=== PATIENT | male | born 1955 | race Caucasian/White ===

== ENCOUNTER 2019-03-03 06:51 | Day surgery (SDC) | payer OTHER ==
[~2019-03-03] VITALS: Ht 185.4 cm; Wt 86.2 kg
[~2019-03-03 06:51] MED LIST: ALBU90OI61 INH; HYDPAM50 PO; MOME220I INH; Omeprazole20 M1 PO; QUET100 PO; SILD25T PO; Trazodone HCl300 MG PO
--- NOTE | 2019-03-03 07:46 | NUR ---
PT ADMITTED TO [facility]. AGREES WITH PLANNED SURGERY. LUNG SOUNDS CLEAR.
--- NOTE | 2019-03-03 13:53 | NUR ---
LATE ENTRY: 1000: VSS. REPORTS 3/10 PAIN. 1 PERCOCET GIVEN ORDERED. Discharge instructions reviewed with patient. Patient verbalizes understanding. Copy given to patient to take home. Discharged via wheelchair to private car for ride home.
== END 2019-03-03 22:51 | disposition home or self-care (01) ==
LOC: ORSCMMR 06:51 → ORD 08:30 → ORSCMMR 08:30
PROVIDERS: Surgery
PROC: 07BH0ZX Excision of Right Inguinal Lymphatic, Open Approach, Diagnostic (ICD-10-PCS; principal; 2019-03-03 08:30)
DX: C82.95 Follicular lymphoma, unspecified, lymph nodes of inguinal region and lower limb (principal); J44.9 Chronic obstructive pulmonary disease, unspecified; F17.210 Nicotine dependence, cigarettes, uncomplicated; Z79.899 Other long term (current) drug therapy; K21.9 Gastro-esophageal reflux disease without esophagitis
CPT/HCPCS: 88307; J0690; J1100; J1885; J2250; J2405; J2704; J3010; J7120